=== PATIENT | female | born 1980 | race Two or more races ===

== ENCOUNTER 2017-04-24 15:06 | Inpatient (IN) | payer OTHER ==
[2017-04-24] MEDS ORDERED: VANCOMYCIN IV PER PHARMACY XX (17:00)
[2017-04-24] MEDS ORDERED: NACL 0.9% 3 ML SYG IV (17:00)
[2017-04-24] MEDS ORDERED: HYDROCODONE/APAP (5/325) TAB PO (17:00)
[2017-04-24] MEDS ORDERED: ACETAMINOPHEN 325 MG TAB PO (17:00)
[2017-04-24] MEDS ORDERED: ONDANSETRON 4 MG INJ IV (17:00)
[2017-04-24 17:09] LABS: ADD MAN DIFF? NO
[2017-04-24 17:12] LABS: BASOPHILS % 0.6 % (0.0-2.0); EOSINOPHILS # 0.1 10^3/ul (0.0-0.5); EOSINOPHILS % 1.3 % (0.0-7.0); HEMATOCRIT 37.2 % (37.0-47.0); HEMOGLOBIN 12.5 g/dl (12.0-16.0); LYMPHOCYTES # 1.8 10^3/ul (0.8-2.9); MEAN CORPUSCULAR HGB CONC 33.6 g/dl (32.0-37.0); MEAN CORPUSCULAR VOLUME 98.2 fl (82.0-101.0); MEAN PLATELET VOLUME 9.9 fl (7.4-10.4); MONOCYTE # 0.5 10^3/ul (0.3-0.9); MONOCYTES % 8.8 % (0.0-11.0); NEUTROPHIL # 2.9 10^3/ul (1.6-7.5); NEUTROPHILS % 55.1 % (39.0-77.0); PLATELET COUNT 336 10^3/UL (140-415); RED BLOOD COUNT 3.79 10^6/ul (4.20-5.40); RED CELL DISTRIBUTION WIDTH 11.3 % (11.5-14.5)
[2017-04-24 17:12] LABS: WHITE BLOOD COUNT 5.2 10^3/ul (4.8-10.8)
[2017-04-24 17:31] LABS: ANION GAP 14 (8-16); BLOOD UREA NITROGEN 17 mg/dl (7-20); CALCIUM 9.6 mg/dl (8.4-10.2); CARBON DIOXIDE 34 mmol/L (21-31); CHLORIDE 103 mmol/L (97-110); CREATININE 0.45 mg/dl (0.44-1.00); GLUCOSE 89 mg/dl (70-220); POTASSIUM 4.5 mmol/L (3.5-5.1); SODIUM 146 mmol/L (135-144)
[2017-04-24 17:34] LABS: INR 1.05; PROTIME 13.8 Sec (11.9-14.9); PT RATIO 1.1
[2017-04-24] MEDS ORDERED: VANCOMYCIN 1 GM 250 ML IVPB (18:00)
[2017-04-24] MEDS: DEXTROSE 5%-0.45% NACL 1,000 ML IV (18:38)
[2017-04-24] MEDS: VANCOMYCIN 400 MG in SOD CHLORIDE 0.9% 100 ML IVPB (19:20)
[2017-04-24] MEDS: HEPARIN 5,000 UNIT/0.5 ML VIAL SC (21:27)
[2017-04-25] MEDS: PANTOPRAZOLE 40 MG INJ IV (05:20)
[2017-04-25] MEDS: HEPARIN 5,000 UNIT/0.5 ML VIAL SC ×3 (05:21→21:55)
[2017-04-25 06:03] LABS: ADD MAN DIFF? NO
[2017-04-25] MEDS: VANCOMYCIN 400 MG in SOD CHLORIDE 0.9% 100 ML IVPB ×2 (06:03→19:23)
[2017-04-25 06:05] LABS: WHITE BLOOD COUNT 4.3 10^3/ul (4.8-10.8)
[2017-04-25 06:05] LABS: BASOPHILS % 0.9 % (0.0-2.0); EOSINOPHILS # 0.1 10^3/ul (0.0-0.5); EOSINOPHILS % 1.6 % (0.0-7.0); HEMATOCRIT 33.5 % (37.0-47.0); HEMOGLOBIN 11.2 g/dl (12.0-16.0); LYMPHOCYTES % 46.7 % (15.0-51.0); MEAN CORPUSCULAR HEMOGLOBIN 33.2 pg (29.0-33.0); MEAN CORPUSCULAR HGB CONC 33.4 g/dl (32.0-37.0); MEAN CORPUSCULAR VOLUME 99.4 fl (82.0-101.0); MONOCYTE # 0.4 10^3/ul (0.3-0.9); MONOCYTES % 8.8 % (0.0-11.0); NEUTROPHIL # 1.8 10^3/ul (1.6-7.5); NEUTROPHILS % 41.8 % (39.0-77.0); PLATELET COUNT 285 10^3/UL (140-415); RED BLOOD COUNT 3.37 10^6/ul (4.20-5.40); RED CELL DISTRIBUTION WIDTH 11.3 % (11.5-14.5)
[2017-04-25 08:52] LABS: ALANINE AMINOTRANSFERASE 38 IU/L (13-69); ALBUMIN 4.2 g/dl (3.3-4.9); ALBUMIN/GLOBULIN RATIO 1.23; ALKALINE PHOSPHATASE 48 IU/L (42-121); ANION GAP 14 (8-16); ASPARTATE AMINO TRANSFERASE 33 IU/L (15-46); BILIRUBIN,INDIRECT 0.3 mg/dl (0-1.1); BILIRUBIN,TOTAL 0.3 mg/dl (0.2-1.3); BLOOD UREA NITROGEN 15 mg/dl (7-20); CALCIUM 9.4 mg/dl (8.4-10.2); CARBON DIOXIDE 32 mmol/L (21-31); CHLORIDE 106 mmol/L (97-110); CHOL/HDL RATIO 3.4 RATIO; CHOLESTEROL 167 mg/dl (100-200); CREATININE 0.44 mg/dl (0.44-1.00); GLUCOSE 69 mg/dl (70-220); HDL CHOLESTEROL 48 mg/dl (34-82); LDL CHOLESTEROL,CALCULATED 100 mg/dl; MAGNESIUM 1.9 mg/dl (1.7-2.5); POTASSIUM 4.2 mmol/L (3.5-5.1); SODIUM 148 mmol/L (135-144); TOTAL PROTEIN 7.6 g/dl (6.1-8.1); TRIGLYCERIDES 96 mg/dl (0-149)
[2017-04-25] MEDS: LORAZEPAM 2 MG INJ IV ×2 (09:00→20:13)
[2017-04-25] MEDS: DEXTROSE 5%-0.45% NACL 1,000 ML IV (16:39)
[2017-04-25 18:16] LABS: VANCOMYCIN,TROUGH 7.7 ug/ml (10.0-20.0)
[2017-04-25] MEDS: morphine 2 MG INJ IV (18:29)
[2017-04-26] MEDS: morphine 2 MG INJ IV (01:01)
[2017-04-26] MEDS: DEXTROSE 5%-0.45% NACL 1,000 ML IV ×2 (01:08→16:39)
[2017-04-26] MEDS: hydrALAzine 20 MG INJ IV (02:05)
[2017-04-26] MEDS: VANCOMYCIN 400 MG in SOD CHLORIDE 0.9% 100 ML IVPB ×3 (02:45→18:41)
[2017-04-26 06:13] LABS: WHITE BLOOD COUNT 6.6 10^3/ul (4.8-10.8)
[2017-04-26 06:13] LABS: ADD MAN DIFF? NO; BASOPHILS % 0.6 % (0.0-2.0); EOSINOPHILS # 0.1 10^3/ul (0.0-0.5); EOSINOPHILS % 2.1 % (0.0-7.0); HEMATOCRIT 37.3 % (37.0-47.0); HEMOGLOBIN 12.5 g/dl (12.0-16.0); LYMPHOCYTES # 2.9 10^3/ul (0.8-2.9); MEAN CORPUSCULAR HGB CONC 33.5 g/dl (32.0-37.0); MEAN CORPUSCULAR VOLUME 98.4 fl (82.0-101.0); MEAN PLATELET VOLUME 9.9 fl (7.4-10.4); MONOCYTE # 0.6 10^3/ul (0.3-0.9); MONOCYTES % 8.3 % (0.0-11.0); NEUTROPHILS % 44.8 % (39.0-77.0); PLATELET COUNT 359 10^3/UL (140-415); RED BLOOD COUNT 3.79 10^6/ul (4.20-5.40); RED CELL DISTRIBUTION WIDTH 11.4 % (11.5-14.5)
[2017-04-26] MEDS: PANTOPRAZOLE 40 MG INJ IV (06:49)
[2017-04-26] MEDS: HEPARIN 5,000 UNIT/0.5 ML VIAL SC ×3 (06:50→22:03)
[2017-04-26 06:56] LABS: ANION GAP 16 (8-16); BLOOD UREA NITROGEN 10 mg/dl (7-20); CALCIUM 9.3 mg/dl (8.4-10.2); CARBON DIOXIDE 32 mmol/L (21-31); CHLORIDE 104 mmol/L (97-110); CREATININE 0.48 mg/dl (0.44-1.00); GLUCOSE 100 mg/dl (70-220); MAGNESIUM 1.9 mg/dl (1.7-2.5); PHOSPHORUS 3.3 mg/dl (2.5-4.9); POTASSIUM 4.1 mmol/L (3.5-5.1); SODIUM 148 mmol/L (135-144)
[2017-04-26] MEDS: LORAZEPAM 2 MG INJ IV ×2 (11:09→21:53)
[2017-04-26] MEDS: BISACODYL (EC) 5 MG TAB PO (20:56)
[2017-04-27] MEDS: morphine 2 MG INJ IV (00:19)
[2017-04-27 02:02] LABS: VANCOMYCIN,TROUGH 11.5 ug/ml (10.0-20.0)
[2017-04-27] MEDS: VANCOMYCIN 400 MG in SOD CHLORIDE 0.9% 100 ML IVPB ×3 (02:40→18:51)
[2017-04-27] MEDS: PANTOPRAZOLE 40 MG INJ IV (05:25)
[2017-04-27] MEDS: HEPARIN 5,000 UNIT/0.5 ML VIAL SC ×3 (05:32→21:16)
[2017-04-27 06:21] LABS: ADD MAN DIFF? NO
[2017-04-27 06:29] LABS: BASOPHILS % 0.3 % (0.0-2.0); EOSINOPHILS # 0.1 10^3/ul (0.0-0.5); EOSINOPHILS % 1.4 % (0.0-7.0); HEMATOCRIT 30.5 % (37.0-47.0); HEMOGLOBIN 10.1 g/dl (12.0-16.0); LYMPHOCYTES # 2.2 10^3/ul (0.8-2.9); MEAN CORPUSCULAR HEMOGLOBIN 32.7 pg (29.0-33.0); MEAN CORPUSCULAR HGB CONC 33.1 g/dl (32.0-37.0); MEAN CORPUSCULAR VOLUME 98.7 fl (82.0-101.0); MEAN PLATELET VOLUME 10.2 fl (7.4-10.4); MONOCYTE # 0.8 10^3/ul (0.3-0.9); MONOCYTES % 10.5 % (0.0-11.0); NEUTROPHIL # 4.2 10^3/ul (1.6-7.5); NEUTROPHILS % 57.7 % (39.0-77.0); PLATELET COUNT 311 10^3/UL (140-415); RED BLOOD COUNT 3.09 10^6/ul (4.20-5.40); RED CELL DISTRIBUTION WIDTH 11.5 % (11.5-14.5)
[2017-04-27 06:29] LABS: WHITE BLOOD COUNT 7.3 10^3/ul (4.8-10.8)
[2017-04-27] MEDS: DEXTROSE 5%-0.45% NACL 1,000 ML IV ×2 (06:36→16:39)
[2017-04-27 06:51] LABS: ANION GAP 11 (8-16); BLOOD UREA NITROGEN 14 mg/dl (7-20); CALCIUM 8.8 mg/dl (8.4-10.2); CARBON DIOXIDE 33 mmol/L (21-31); CHLORIDE 105 mmol/L (97-110); CREATININE 0.43 mg/dl (0.44-1.00); GLUCOSE 80 mg/dl (70-220); MAGNESIUM 1.9 mg/dl (1.7-2.5); PHOSPHORUS 2.9 mg/dl (2.5-4.9); POTASSIUM 4.4 mmol/L (3.5-5.1); SODIUM 145 mmol/L (135-144)
[2017-04-27] MEDS: QUETIAPINE 25 MG TAB PO ×2 (12:11→21:17)
[2017-04-27] MEDS: LORAZEPAM 2 MG INJ IV (22:15)
[2017-04-28] MEDS: VANCOMYCIN 400 MG in SOD CHLORIDE 0.9% 100 ML IVPB ×3 (02:24→18:45)
[2017-04-28] MEDS: PANTOPRAZOLE 40 MG INJ IV (05:58)
[2017-04-28] MEDS: HEPARIN 5,000 UNIT/0.5 ML VIAL SC ×3 (05:58→21:13)
[2017-04-28 06:17] LABS: ADD MAN DIFF? NO
[2017-04-28 06:23] LABS: BASOPHILS % 0.3 % (0.0-2.0); EOSINOPHILS # 0.1 10^3/ul (0.0-0.5); EOSINOPHILS % 1.5 % (0.0-7.0); HEMATOCRIT 31.3 % (37.0-47.0); HEMOGLOBIN 10.4 g/dl (12.0-16.0); LYMPHOCYTES # 2.1 10^3/ul (0.8-2.9); LYMPHOCYTES % 28.3 % (15.0-51.0); MEAN CORPUSCULAR HEMOGLOBIN 32.9 pg (29.0-33.0); MEAN CORPUSCULAR HGB CONC 33.2 g/dl (32.0-37.0); MEAN CORPUSCULAR VOLUME 99.1 fl (82.0-101.0); MEAN PLATELET VOLUME 10.3 fl (7.4-10.4); MONOCYTE # 0.7 10^3/ul (0.3-0.9); MONOCYTES % 9.1 % (0.0-11.0); NEUTROPHIL # 4.6 10^3/ul (1.6-7.5); NEUTROPHILS % 60.5 % (39.0-77.0); PLATELET COUNT 321 10^3/UL (140-415); RED BLOOD COUNT 3.16 10^6/ul (4.20-5.40); RED CELL DISTRIBUTION WIDTH 11.7 % (11.5-14.5)
[2017-04-28 06:23] LABS: WHITE BLOOD COUNT 7.5 10^3/ul (4.8-10.8)
[2017-04-28 06:51] LABS: ANION GAP 14 (8-16); BLOOD UREA NITROGEN 13 mg/dl (7-20); CALCIUM 9.3 mg/dl (8.4-10.2); CARBON DIOXIDE 33 mmol/L (21-31); CHLORIDE 103 mmol/L (97-110); CREATININE 0.37 mg/dl (0.44-1.00); GLUCOSE 81 mg/dl (70-220); MAGNESIUM 1.9 mg/dl (1.7-2.5); PHOSPHORUS 3.7 mg/dl (2.5-4.9); POTASSIUM 3.7 mmol/L (3.5-5.1); SODIUM 146 mmol/L (135-144)
[2017-04-28] MEDS: QUETIAPINE 25 MG TAB PO ×2 (10:01→20:30)
[2017-04-28] MEDS: DEXTROSE 5%-0.45% NACL 1,000 ML IV (17:13)
[2017-04-29] MEDS: VANCOMYCIN 400 MG in SOD CHLORIDE 0.9% 100 ML IVPB ×3 (02:00→18:17)
[2017-04-29] MEDS: PANTOPRAZOLE 40 MG INJ IV (05:59)
[2017-04-29] MEDS: HEPARIN 5,000 UNIT/0.5 ML VIAL SC ×3 (06:02→21:35)
[2017-04-29] MEDS: QUETIAPINE 25 MG TAB PO ×2 (09:13→20:47)
[2017-04-29] MEDS: DEXTROSE 5%-0.45% NACL 1,000 ML IV (16:39)
[2017-04-30] MEDS: VANCOMYCIN 400 MG in SOD CHLORIDE 0.9% 100 ML IVPB ×3 (02:32→17:52)
[2017-04-30] MEDS: PANTOPRAZOLE 40 MG INJ IV (05:34)
[2017-04-30] MEDS: HEPARIN 5,000 UNIT/0.5 ML VIAL SC ×3 (05:35→22:24)
[2017-04-30 05:45] LABS: ADD MAN DIFF? NO
[2017-04-30 06:08] LABS: BASOPHIL # 0.1 10^3/ul (0.0-0.1); BASOPHILS % 0.7 % (0.0-2.0); EOSINOPHILS # 0.1 10^3/ul (0.0-0.5); EOSINOPHILS % 1.5 % (0.0-7.0); HEMATOCRIT 33.3 % (37.0-47.0); HEMOGLOBIN 10.8 g/dl (12.0-16.0); LYMPHOCYTES # 1.9 10^3/ul (0.8-2.9); LYMPHOCYTES % 27.7 % (15.0-51.0); MEAN CORPUSCULAR HEMOGLOBIN 32.6 pg (29.0-33.0); MEAN CORPUSCULAR HGB CONC 32.4 g/dl (32.0-37.0); MEAN CORPUSCULAR VOLUME 100.6 fl (82.0-101.0); MEAN PLATELET VOLUME 11.5 fl (7.4-10.4); MONOCYTE # 0.5 10^3/ul (0.3-0.9); MONOCYTES % 7.6 % (0.0-11.0); NEUTROPHIL # 4.2 10^3/ul (1.6-7.5); NEUTROPHILS % 62.2 % (39.0-77.0); PLATELET COUNT 251 10^3/UL (140-415); RED BLOOD COUNT 3.31 10^6/ul (4.20-5.40); RED CELL DISTRIBUTION WIDTH 11.9 % (11.5-14.5)
[2017-04-30 06:08] LABS: WHITE BLOOD COUNT 6.7 10^3/ul (4.8-10.8)
[2017-04-30 06:34] LABS: ANION GAP 15 (8-16); BLOOD UREA NITROGEN 7 mg/dl (7-20); CALCIUM 9.7 mg/dl (8.4-10.2); CARBON DIOXIDE 32 mmol/L (21-31); CHLORIDE 104 mmol/L (97-110); CREATININE 0.39 mg/dl (0.44-1.00); GLUCOSE 73 mg/dl (70-220); MAGNESIUM 2.1 mg/dl (1.7-2.5); PHOSPHORUS 4.5 mg/dl (2.5-4.9); POTASSIUM 4.4 mmol/L (3.5-5.1); SODIUM 147 mmol/L (135-144)
[2017-04-30] MEDS: QUETIAPINE 25 MG TAB PO ×3 (09:20→22:23)
[2017-04-30 10:58] LABS: VANCOMYCIN,TROUGH 12.3 ug/ml (10.0-20.0)
[2017-04-30] MEDS: DEXTROSE 5%-0.45% NACL 1,000 ML IV ×2 (11:33→16:39)
[2017-04-30] MEDS: BISACODYL (EC) 5 MG TAB PO (18:11)
[2017-04-30] MEDS: LORAZEPAM 2 MG INJ IV (21:32)
[2017-05-01] MEDS: VANCOMYCIN 400 MG in SOD CHLORIDE 0.9% 100 ML IVPB ×2 (02:45→10:22)
[2017-05-01] MEDS: PANTOPRAZOLE 40 MG INJ IV (06:15)
[2017-05-01] MEDS: HEPARIN 5,000 UNIT/0.5 ML VIAL SC ×3 (06:17→22:08)
[2017-05-01] MEDS: QUETIAPINE 25 MG TAB PO ×2 (09:06→20:32)
[2017-05-01] MEDS: DEXTROSE 5%-0.45% NACL 1,000 ML IV (16:39)
[2017-05-01 19:45] LABS: OCCULT BLOOD STOOL NEGATIVE (NEGATIVE)
[2017-05-01] MEDS: LORAZEPAM 2 MG INJ IV (23:58)
[2017-05-02] MEDS: DEXTROSE 5%-0.45% NACL 1,000 ML IV (02:36)
[2017-05-02] MEDS: PANTOPRAZOLE (EC) 40 MG TAB PO (05:35)
[2017-05-02] MEDS: HEPARIN 5,000 UNIT/0.5 ML VIAL SC ×2 (05:37→14:00)
[2017-05-02] MEDS: QUETIAPINE 25 MG TAB PO ×2 (10:01→21:06)
== END 2017-05-02 21:45 | disposition hospice, inpatient (51) | DRG 58 ==
LOC: MS2 15:06
DX: G35 Multiple sclerosis (principal); G93.49 Other encephalopathy; E43 Unspecified severe protein-calorie malnutrition; R78.81 Bacteremia; Z68.1 Body mass index [BMI] 19.9 or less, adult; Z74.01 Bed confinement status
CPT/HCPCS: 70553; 80048; 80053; 80061; 80202; 82270; 83735; 84100; 84443; 85025; 85610; 87040; 92526; 92610; 93306